=== PATIENT | female | born 1955 | race Caucasian/White ===

== ENCOUNTER → 2020-12-11 09:53 | Outpatient (CLI) | payer MEDICARE, OTHER, SELFPAY ==
--- NOTE | 2020-12-11 09:56 | DI.MG.S_ITS ---
BILATERAL DIGITAL SCREENING MAMMOGRAM 3D/2D WITH CAD: 12/11/2020 CLINICAL: Routine screening. Family history of breast cancer. Comparison is made to exams dated: 01/07/2019 mammogram, 11/17/2017 mammogram, and 04/27/2017 mammogram - [facility]. The tissue of both breasts is heterogeneously dense. This may lower the sensitivity of mammography. Current study was also evaluated with a Computer Aided Detection (CAD) system. No significant masses, calcifications, or other findings are seen in either breast. There has been no significant interval change. IMPRESSION: NEGATIVE There is no mammographic evidence of malignancy. A 1 year screening mammogram is recommended. This exam was interpreted at Station ID: [id number]. NOTE: For mammograms, a report in lay terms will be sent to the patient. Approximately 15% of breast malignancies will not be visualized mammographically. In the management of a palpable breast mass, a negative mammogram must not discourage biopsy of a clinically suspicious lesion. Electronically Signed By: Shreyas pop/kunal:12/11/2020 10:18:12 letter sent: Normal Exam ACR BI-RADS Category 1: Negative [id number]
== END ==
PROVIDERS: Family Provider Orthopaedic Surgery; PCP Internal Medicine; Referring Provider Internal Medicine; Visit Provider Internal Medicine
DX: Z12.31 Encounter for screening mammogram for malignant neoplasm of breast (principal); M81.0 Age-related osteoporosis without current pathological fracture; Z80.3 Family history of malignant neoplasm of breast; Z78.0 Asymptomatic menopausal state; Z90.722 Acquired absence of ovaries, bilateral
CPT/HCPCS: 77063; 77067; 77080

== ENCOUNTER → 2022-04-16 13:39 | Outpatient (CLI) | payer MEDICARE, OTHER, SELFPAY ==
--- NOTE | 2022-04-16 13:41 | DI.RAD.S_ITS ---
PROCEDURE: XR LUMBAR SPINE MIN 4V INDICATIONS: BACK PAIN TECHNIQUE: 5 views of the lumbar spine were acquired, including bilateral oblique views. COMPARISON: [facility], CR, XR LUMBAR SPINE 2 OR 3 VIEWS, 01/08/2018, 10:29. FINDINGS: Bones: 5 nonrib-bearing vertebrae are present. There is roughly 5 mm of anterolisthesis of L4 on L5. Multilevel disc space narrowing and endplate osteophyte formation. Facet hypertrophy throughout the lumbar spine. No vertebral body compression fractures. No suspicious bony lesions. The pars interarticularis are not well seen bilaterally secondary to obliquity and body habitus. Soft tissues: Overlying bowel gas pattern is normal. No suspicious soft tissue calcifications. IMPRESSION: 1. Multilevel degenerative disc and facet disease. 2. No acute fracture. No osseous lesion. If symptoms and/or clinical suspicion for pathology persist, further assessment with repeat, or advanced imaging (e.g., CT, MRI, or bone scan) may be helpful for further assessment. Dictated by: Rajiv Singh M.D. on 04/16/2022 at 15:48 Transcribed by: KESHIA on 04/16/2022 at 15:49 Approved by: Rajiv Singh M.D. on 04/16/2022 at 16:44
== END ==
PROVIDERS: Family Provider Orthopaedic Surgery; PCP Internal Medicine; Referring Provider Physical Medicine & Rehabilitation; Visit Provider Physical Medicine & Rehabilitation
DX: M54.9 Dorsalgia, unspecified (principal); M51.36 Other intervertebral disc degeneration, lumbar region; M47.816 Spondylosis without myelopathy or radiculopathy, lumbar region; M54.16 Radiculopathy, lumbar region; M48.061 Spinal stenosis, lumbar region without neurogenic claudication
CPT/HCPCS: 72110; 99214

== ENCOUNTER → 2022-04-25 14:55 | Outpatient (CLI) | payer MEDICARE, OTHER, SELFPAY ==
--- NOTE | 2022-04-25 14:57 | DI.MRI.S_ITS ---
PROCEDURE: MR LUMBAR SPINE WO CON INDICATIONS: Chronic progressive LBP TECHNIQUE: Noncontrast sagittal T1 spin echo and T2 fast echo, sagittal STIR, and T2 fast spin echo through the lumbar spine. In cases with scoliosis, additional coronal T2 fast spin echo may be performed. COMPARISON: [facility], , L-SPINE WITHOUT CONTRAST, 12/07/2017, 17:05. FINDINGS: Image quality: Excellent. Alignment and Curvature: There is normal bony alignment. Bone Marrow: Marrow is of normal overall signal. No acute vertebral body compression fractures. Spinal Cord: Conus medullaris terminates at the L1 level. Visualized cord demonstrates normal signal and size. Paraspinous Soft Tissues: No paravertebral masses. T12-L1: Normal appearance. L1-L2: Disc height is maintained. Circumferential disc bulge without central or foraminal stenosis. L2-L3: Disc space narrowing with circumferential disc bulge and hypertrophic facet joints results in mild central stenosis severe right and mild left foraminal stenosis L3-L4: Disc space narrowing with circumferential disc bulge and hypertrophic facet joints results in moderate central stenosis. Mild bilateral foraminal stenosis L4-L5: Disc space narrowing with circumferential disc bulge and hypertrophic facet joints results in severe central stenosis. There is possibility 4-5 mm left synovial cyst noted particularly on the lateral sequence image 4/10. Moderate left and mild right foraminal stenosis L5-S1: Disc space narrowing with circumferential disc bulge and hypertrophic facet joints results in no central stenosis mild left and no right foraminal stenosis IMPRESSION: Multilevel degenerative disc disease and arthropathy results in varying degrees of central and foraminal stenosis including severe central stenosis at L4-5 associated with possible left facet synovial cyst Approved by: Enoc Alva M.D. on 04/25/2022 at 17:21
== END ==
PROVIDERS: Family Provider Orthopaedic Surgery; PCP Student in an Organized Health Care Education/Training Program; Referring Provider Physical Medicine & Rehabilitation; Visit Provider Physical Medicine & Rehabilitation
DX: M51.16 Intervertebral disc disorders with radiculopathy, lumbar region (principal)
CPT/HCPCS: 72148

== ENCOUNTER 2022-05-27 13:46 | Outpatient (CLI) | payer MEDICARE, OTHER, SELFPAY ==
[2022-05-27] VITALS (8 sets, daily range): BP systolic 135–178; BP diastolic 60–84; PULSE 58–71; RESP 12–22; TEMP 36.3; O2SAT 96–99
--- NOTE | 2022-05-27 13:47 | DI.RAD.S_ITS ---
PROCEDURE: PAIN L/S FACET INJ/BLK 1ST BEENA COMPARISON: None. INDICATIONS: SPONDYLOSIS FINDINGS: Access needles identified in the bilateral L3-L4 and L4-L5 facets. Injection of small amount of contrast material demonstrates positioning of the needle tips in the facet joints and extra thecal location. IMPRESSION: Access needles localized to bilateral L3-L4 and L4-L5 facets for facet joint injection. Dictated by: Rosy Canada MD, PhD on 05/27/2022 at 15:04 Approved by: Rosy Canada MD, PhD on 05/27/2022 at 15:05
[2022-05-27] MEDS: MIDAZOLAM 2 MG/2 ML VIAL IV (14:24)
[2022-05-27] MEDS: BETAMETHASONE 30 MG/5 ML MDV 12 MG INJ (14:28)
[2022-05-27] MEDS: BUPIVACAINE 0.5% (PF) VIAL 5 ML INJ (14:28)
[2022-05-27] MEDS: IOPAMIDOL 15 ML VIAL 3 ML INJ (14:28)
[2022-05-27] MEDS: LIDOCAINE 1% 20 ML INJ (14:29)
--- NOTE | 2022-05-27 14:41 | P.PCN_ITS ---
Date/Time/Diagnoses Date of procedure: 05/27/22 Time of procedure: 14:41 Pre-procedure diagnosis: 1. FACET ARTHROPATHY 2. AXIAL LBP 3. MULTILEVEL DDD Post-procedure diagnosis: same Procedure Notes Procedure: 1. FLUORSCOPICALLY GUIDED CONTRAST CONTROLLED FACET JOINT INJECTIONS BILATERAL L3/4, L4/5 Indications: Vibha is referred by Dr. Reyna for treatment of Axial LBP Physician: Ameya Freedman Total Fluoroscopy time (seconds): 13 Total sedation minutes: 11 Complications: none Procedure in detail & Post-procedure care: FINDINGS Multilevel Facet Arthropathy with Clinically significant axial LBP DESCRIPTION OF PROCEDURE Fluoroscopically guided, contrast-controlled bilateral L3/4, L4/5 facet joint injections. Following review of allergy and review of potential side effects and complications, including, but not necessarily limited to, infection, allergic reaction, local tissue breakdown, stroke, temporary or permanent nerve injury, paralysis, and possible , the patient indicated that the patient understood and agreed to proceed. An informed consent document was signed by the patient, witnessed by a nurse, and placed in the patient's chart. Additionally, other treatment options including medications, modalities, and physical therapy were reviewed with the patient. After review of previous anaesthesic history and IV conscious sedation the patient was deemed safe to proceed with today's procedure with IV conscious sedation as ASA class II designation. Safety time-out was performed to confirm patient ID, procedure to be performed and site of procedure. IV sedation was accomplished with a combination of 2mg of Versed was administered by the RN after DO order, titrated to patient comfort during the course of the procedure while the patient remained responsive to all verbal commands. In the prone position, following sterile prep and drape of the lumbar region, the posterior aspect of the L3/4, L4/5 facet joints were identified fluoroscopically. The skin was anesthetized via a 25-gauge 1.5-inch needle with 1% lidocaine solution into the corresponding facet joints. At this point, a 22- gauge 3.5-inch spinal needle was atraumatically introduced and advanced under fluoroscopic guidance into the corresponding facet joints. Following negative aspiration, injections of approximately 0.2cc of Isovue 200 confirmed interarticular placement without vascular uptake. The identical procedure was then performed at the L3/4, L4/5 facet joints on the left. Radiological data, including multiple fluoroscopic views of the lumbosacral spine, reveal a spinal needle at the L3/4, L4/5 facet joints bilaterally. Subsequent views show flow of contrast material both superiorly and inferiorly within the joint space without vascular or intrathecal uptake. At this point, a total of 0.5cc including a mixture of 0.25cc Marcaine and 0.25cc betamethasone was injected without complication into each of the corresponding facet joints. The patient tolerated the procedure well without signs or symptoms of complications prior to transfer to the recovery area continued monitoring without incident. The patient was then transferred to the recovery area where they were observed for an appropriate period of time after the injection. The patient reported a VAS score of 7 prior to the procedure and a post-procedure VAS of 0. POST OP INSTRUCTIONS The patient was provided a Pain Log to continue to record their response to the target-specific procedure prior to follow-up visit with their referring physician. Additionally, specific post-injection care instructions and a contact number to our office were provided if concerns arise regarding possible complications associated with the procedure are suspected.
== END 2022-05-27 14:57 | disposition home or self-care (01) ==
LOC: RAD 13:47
PROVIDERS: Family Provider Orthopaedic Surgery; PCP Student in an Organized Health Care Education/Training Program; Referring Provider Physical Medicine & Rehabilitation; Visit Provider Physical Medicine & Rehabilitation
DX: M47.816 Spondylosis without myelopathy or radiculopathy, lumbar region (principal); M51.36 Other intervertebral disc degeneration, lumbar region
CPT/HCPCS: 64493; 64494; 99152; J0702; J2250

== ENCOUNTER 2022-12-11 10:35 | Outpatient (CLI) | payer MEDICARE, OTHER, SELFPAY ==
[2022-12-11] VITALS (9 sets, daily range): BP systolic 140–197; BP diastolic 72–87; PULSE 58–69; RESP 15–20; TEMP 36.1; O2SAT 95–100
--- NOTE | 2022-12-11 10:38 | DI.RAD.S_ITS ---
PROCEDURE: PAIN L/S FACET INJ/BLK 1ST BEENA COMPARISON: [facility], , PAIN L/S FACET INJ/BLK 1ST BEENA, 05/27/2022, 14:28. INDICATIONS: SPONDYLOSIS FINDINGS: Fluoroscopic spot filming was performed to verify placement of spinal needles on both sides at the L4, L5, and S1 levels, as labeled on the films. Appropriate location of the needle tips was confirmed by injection of iodinated contrast. IMPRESSION: Intraprocedural examination demonstrating appropriate positions of the needles. Dictated by: Babatunde Ingram M.D. on 12/11/2022 at 13:49 Approved by: Babatunde Ingram M.D. on 12/11/2022 at 13:49
[2022-12-11] MEDS: MIDAZOLAM 2 MG/2 ML VIAL IV (11:53)
[2022-12-11] MEDS: BUPIVACAINE 0.5% (PF) 10 ML VIAL 2 ML INJ (11:57)
[2022-12-11] MEDS: LIDOCAINE 1% 20 ML INJ (11:57)
[2022-12-11] MEDS: IOPAMIDOL 15 ML VIAL 3 ML INJ (11:58)
--- NOTE | 2022-12-11 12:15 | PM.PROC.IR.1 ---
Date/Time/Diagnoses Date of procedure: 12/11/22 Time of procedure: 12:15 Pre-procedure diagnosis: FACET ARTHROPATHY Post-procedure diagnosis: same Procedure Notes Procedure: 1. BILATERAL L3, L4 AND L5 DIAGNOSTIC MB BLOCKS Indications: Vibha is referred by Dr. Reyna for treatment of Bilateral Axial LBP. Physician: Ameya Freedman Total Fluoroscopy time (seconds): 14 Total sedation minutes: 15 Complications: none Procedure in detail & Post-procedure care: DESCRIPTION OF PROCEDURE Fluoroscopically guided, contrast-controlled bilateral L3, L4 AND L5 medial branch blocks with 0.5cc of 0.5% Marcaine. Following review of allergy and review of potential side effects and complications, including, but not necessarily limited to, infection, allergic reaction, local tissue breakdown, nerve injury, paralysis, stroke and possible , the patient indicated that the patient understood and agreed to proceed. An informed consent document was signed by the patient, witnessed by a nurse, and placed in the patient's chart. After review of previous anaesthesic history and IV conscious sedation the patient was deemed safe to proceed with today's procedure with IV conscious sedation as ASA class II designation. Safety time-out was performed to confirm patient ID, procedure to be performed and site of procedure. IV sedation was accomplished with a combination of 2mg of Versed was administered by the RN after DO order, titrated to patient comfort during the course of the procedure while the patient remained responsive to all verbal commands In the prone position, following sterile prep and drape of the lumbar region, the right L3, L4 AND L5 anatomical location of the medial branch of the dorsal ramus was identified fluoroscopically. Subsequently an anesthetic skin wheal using 1% lidocaine solution was initiated at each of the anatomical spots. Subsequently then a 22-gauge 3.5-inch spinal needle was atraumatically introduced and advanced under fluoroscopic guidance at each of the corresponding sites at the right L3, L4 and L5 MB. After negative aspiration, 0.2cc of Isovue 200 was injected, confirming placement without vascular or intrathecal uptake. Subsequently then 0.5cc of 0.5% Marcaine solution was injected at each of the corresponding sites at the right L3, L4 and L5 medial branch locations. The identical procedure was replicated on the left. The patient tolerated the procedure well without signs or symptoms of complications. The patient tolerated the procedure well without signs or symptoms of complications prior to transfer to the recovery area continued monitoring without incident. Post-procedure, the patient was monitored initiating provocative activities to measure the amount of relief from block of the facetogenic pain. The patient reported a VAS of 7 prior to the procedure and a post-procedure VAS of 1. It has been a pleasure to assist in the diagnostic and therapeutic care of your patient. POST OP INSTRUCTIONS The patient was provided with a Pain Log to complete over the next several hours and subsequent days prior to the patient's follow up with the ordering physician. If the patient has special agent group insurance relief to the solution applied, then they may be a candidate for medial branch rhizotomy. The patient is aware, was provided, once again, with a Pain Log and will follow up with the referring physician for review and clinical correlation
== END 2022-12-11 12:27 | disposition home or self-care (01) ==
LOC: RAD 10:36
PROVIDERS: Family Provider Orthopaedic Surgery; PCP Student in an Organized Health Care Education/Training Program; Referring Provider Physical Medicine & Rehabilitation; Visit Provider Physical Medicine & Rehabilitation
DX: M47.816 Spondylosis without myelopathy or radiculopathy, lumbar region (principal)
CPT/HCPCS: 64493; 64494; 99152; J2250

== ENCOUNTER 2023-04-07 10:17 | Outpatient (CLI) | payer MEDICARE, OTHER, SELFPAY ==
[2023-04-07] VITALS (10 sets, daily range): BP systolic 128–188; BP diastolic 75–105; PULSE 59–71; RESP 15–22; TEMP 36.8; O2SAT 95–98
--- NOTE | 2023-04-07 10:18 | DI.RAD.S_ITS ---
PROCEDURE: PAIN L/S FACET INJ/BLK 1ST BEENA COMPARISON: [facility], , PAIN L/S FACET INJ/BLK 1ST BEENA, 12/11/2022, 11:57. INDICATIONS: FACET ARTHROPATHY FINDINGS: Fluoroscopic spot filming was performed to verify placement of spinal needles on both sides at the L3, L4, and L5 levels, as labeled on the films. Appropriate location of the needle tips was confirmed by injection of iodinated contrast. IMPRESSION: Intraprocedural examination demonstrating appropriate positions of the needles. Dictated by: Babatunde Ingram M.D. on 04/07/2023 at 19:54 Approved by: Babatunde Ingram M.D. on 04/07/2023 at 19:54
[2023-04-07] MEDS: MIDAZOLAM 2 MG/2 ML VIAL IV (11:12)
[2023-04-07] MEDS: IOPAMIDOL 15 ML VIAL 3 ML INJ (11:18)
[2023-04-07] MEDS: LIDOCAINE 2% INJ MDV 20ML 5 ML INJ (11:19)
[2023-04-07] MEDS: LIDOCAINE 1% 20 ML 5 ML INJ (11:19)
--- NOTE | 2023-04-07 11:37 | P.PCN_ITS ---
Date/Time/Diagnoses Date of procedure: 04/07/23 Time of procedure: 11:37 Pre-procedure diagnosis: 1. FACET ARTHROPATHY Post-procedure diagnosis: same Procedure Notes Procedure: 1. BILATERAL L3, L4 AND L5 DIAGNOSTIC MB BLOCKS Indications: Vibha is referred by Dr. Reyna for treatment of Bilateral Axial LBP. Physician: Ameya Freedman Total Fluoroscopy time (seconds): 18 Total sedation minutes: 20 Complications: none Procedure in detail & Post-procedure care: DESCRIPTION OF PROCEDURE Fluoroscopically guided, contrast-controlled bilateral L3, L4 AND L5 medial branch blocks with 0.5cc of 2% Lidocaine. Following review of allergy and review of potential side effects and complications, including, but not necessarily limited to, infection, allergic reaction, local tissue breakdown, nerve injury, paralysis, stroke and possible , the patient indicated that the patient understood and agreed to proceed. An informed consent document was signed by the patient, witnessed by a nurse, and placed in the patient's chart. After review of previous anaesthesic history and IV conscious sedation the patient was deemed safe to proceed with today's procedure with IV conscious sedation as ASA class II designation. Safety time-out was performed to confirm patient ID, procedure to be performed and site of procedure. IV sedation was accomplished with a combination of 2mg of Versed was administered by the RN after DO order, titrated to patient comfort during the course of the procedure while the patient remained responsive to all verbal commands In the prone position, following sterile prep and drape of the lumbar region, the right L3, L4 AND L5 anatomical location of the medial branch of the dorsal ramus was identified fluoroscopically. Subsequently an anesthetic skin wheal using 1% lidocaine solution was initiated at each of the anatomical spots. Subsequently then a 22-gauge 3.5-inch spinal needle was atraumatically introduced and advanced under fluoroscopic guidance at each of the corresponding sites at the right L3, L4 and L5 MB. After negative aspiration, 0.2cc of Isovue 200 was injected, confirming placement without vascular or intrathecal uptake. Subsequently then 0.5cc of 2% Lidocaine solution was injected at each of the corresponding sites at the right L3, L4 and L5 medial branch locations. The identical procedure was replicated on the left. The patient tolerated the proc edure well without signs or symptoms of complications. The patient tolerated the procedure well without signs or symptoms of complications prior to transfer to the recovery area continued monitoring without incident. Post-procedure, the patient was monitored initiating provocative activities to measure the amount of relief from block of the facetogenic pain. The patient reported a VAS of 7 prior to the procedure and a post-procedure VAS of 1. It has been a pleasure to assist in the diagnostic and therapeutic care of your patient. POST OP INSTRUCTIONS The patient was provided with a Pain Log to complete over the next several hours and subsequent days prior to the patient's follow up with the ordering physician. If the patient has spring upholsterer relief to the solution applied, then they may be a candidate for medial branch rhizotomy. The patient is aware, was provided, once again, with a Pain Log and will follow up with the referring physician for review and clinical correlation
== END 2023-04-07 11:45 | disposition home or self-care (01) ==
LOC: RAD 10:17
PROVIDERS: Family Provider Orthopaedic Surgery; PCP Student in an Organized Health Care Education/Training Program; Referring Provider Physical Medicine & Rehabilitation; Visit Provider Physical Medicine & Rehabilitation
DX: M47.816 Spondylosis without myelopathy or radiculopathy, lumbar region (principal)
CPT/HCPCS: 64493; 64494; 99152; J2250

== ENCOUNTER 2023-05-12 10:33 | Outpatient (CLI) | payer MEDICARE, OTHER, SELFPAY ==
[2023-05-12] VITALS (12 sets, daily range): BP systolic 143–194; BP diastolic 68–85; PULSE 57–66; RESP 11–20; TEMP 36.6; O2SAT 96–99
[2023-05-12] MEDS: fentaNYL 100 MCG/2 ML INJ 50 MCG IV ×2 (11:34→11:56)
[2023-05-12] MEDS: MIDAZOLAM 2 MG/2 ML VIAL 1 MG IV (11:34)
[2023-05-12] MEDS: BUPIVACAINE 0.5% (PF) 10 ML VIAL 5 ML INJ (11:40)
[2023-05-12] MEDS: LIDOCAINE 1% 20 ML 5 ML INJ (11:41)
[2023-05-12] MEDS: MIDAZOLAM 5 MG/ML VIAL 1 MG IV (11:56)
--- NOTE | 2023-05-12 12:17 | P.PCN_ITS ---
Date/Time/Diagnoses Date of procedure: 05/12/23 Time of procedure: 12:17 Pre-procedure diagnosis: 1. RECALCITRANT FACET ARTHROPATHY Post-procedure diagnosis: same Procedure Notes Procedure: 1. BILATERAL L3, L4 AND L5 MEDIAL BRANCH RADIOFREQUENCY NEUROTOMY Indications: Vibha is referred by Dr. Reyna for treatment of facet arthropathy. Physician: Ameya Freedman Total Fluoroscopy time (seconds): 22 Total sedation minutes: 36 Complications: none Procedure in detail & Post-procedure care: DESCRIPTION OF PROCEDURE Bilateral L3, L4 and L5 medial branch radiofrequency neurotomy The patient is well known to this clinic having undergone previous facet injections with good but temporary relief. The patient has experienced appropriate, concordant relief with previous facet and median branch blocks but the patient's pain has been recalcitrant to further conservative measures. Therefore, based upon the patient's relief and persistent symptoms, the patient is considered an appropriate candidate for facet rhizotomy. All of the patient's questions regarding the risks versus benefits of the procedure, including, but not limited to, bleeding, infection, temporary as well as lasting nerve injury, paralysis, stroke, and , as well treatment alternatives were answered to satisfaction. After obtaining informed consent, denial of pertinent drug allergies, as well as being made aware of the potential risks of bleeding, infection, spinal cord trauma, paralysis, temporary and permanent nerve damage, seizure, stroke, and possible , the patient was brought to the fluoroscopy suite and positioned prone on the fluoroscopy table. The lumbar region was prepped with Betadine and covered with a fenestrated drape in the usual sterile fashion. Appropriate monitors applied including pulse oxime ter, pulse, and blood pressure for regular monitoring throughout the procedure. After review of previous anaesthesic history and IV conscious sedation the patient was deemed safe to proceed with today's procedure with IV conscious sedation as ASA class II designation. Safety time-out was performed to confirm patient ID, procedure to be performed and site of procedure. IV sedation was accomplished with a combination of 2mg of Versed and 100mcg of Fentanyl administered by the RN after DO order, titrated to patient comfort during the course of the procedure while the patient remained responsive to all verbal commands. After local infiltration using 1% lidocaine, under fluoroscopic guidance, a 10- cm RF insulated needle with a 10-mm active tip was positioned parallel to the junction of the right the superior articulating process where the L5 medial branch resides. Needle placement was confirmed with motor stimulation of .5v on the right which produced local stimulation without radicular component. The stimulation was then increased to 2v with, once again, only local multifidus stimulation without radicular component. The needle was then removed and the identical procedure was performed along the length of the right L4 medial branch with motor stimulation at .7v on the right. The identical procedure was once again performed along the length of the right L3 and medial branch with motor stimulation of .5v on the right. The medial branches were then anesthetised with 0.5% marcaine. This was then followed by two discreet lesions performed at 80 degrees Celsius for 90 seconds each. The identical procedures were repeated on the left. The patient tolerated the procedure well without signs or symptoms of complications prior to transfer to the recovery area continued monitoring without incident. The patient was then transferred to the recovery area where they were observed for an appropriate period of time after the injection. The patient reported a VAS score of 9 prior to the procedure and a post-procedure VAS of 0. POST OP INSTRUCTIONS The patient was provided a Pain Log to continue to record the patient's response to the target-specific procedure prior to the patient's follow-up visit with the referring physician. Additionally, specific post-injection care instructions and a contact number to our office were provided if concerns arise regarding possible complications associated with the procedure are suspected.
--- NOTE | 2023-05-12 12:28 | DI.RAD.S_ITS ---
PROCEDURE: PAIN L/S MED/LAT N RFA BILAT INDICATIONS: SPONDYLOSIS COMPARISON: None. FINDINGS: Fluoroscopic spot filming was performed to verify placement of spinal needles at the bilateral L3, L4 and L5 pedicles level(s), as labeled on the films. Appropriate location(s) of the needle tip(s) was confirmed by injection of iodinated contrast. IMPRESSION: Access needles at the bilateral L3, L4 and L5 pedicles for bilateral L3, L4 and L5 medial branch block. Dictated by: Rosy Canada MD, PhD on 05/12/2023 at 13:09 Approved by: Rosy Canada MD, PhD on 05/12/2023 at 13:10
== END 2023-05-12 12:33 | disposition home or self-care (01) ==
LOC: RAD 10:35
PROVIDERS: Family Provider Orthopaedic Surgery; PCP Student in an Organized Health Care Education/Training Program; Referring Provider Physical Medicine & Rehabilitation; Visit Provider Physical Medicine & Rehabilitation
DX: M47.816 Spondylosis without myelopathy or radiculopathy, lumbar region (principal)
CPT/HCPCS: 64635; 64636; 99152; 99153; J2250; J3010

== ENCOUNTER 2023-07-21 09:10 | Outpatient (CLI) | payer MEDICARE, OTHER, SELFPAY ==
[2023-07-21] VITALS (8 sets, daily range): BP systolic 143–178; BP diastolic 58–88; PULSE 57–62; RESP 11–20; TEMP 36.9; O2SAT 95–98
--- NOTE | 2023-07-21 09:45 | DI.RAD.S_ITS ---
PROCEDURE: PAIN L INTERLAMINAR/CAUDAL INJ INDICATIONS: SPINAL STENOSIS COMPARISON: None. FINDINGS: Fluoroscopic spot filming was performed to verify placement of spinal needles at the L4-5 level(s), as labeled on the films. Appropriate location(s) of the needle tip(s) was confirmed by injection of iodinated contrast. IMPRESSION: Fluoroscopic image demonstrates spinal needle at the L4-5 level. Please see procedure report for details. Dictated by: Álvaro Winston M.D. on 07/21/2023 at 13:16 Approved by: Álvaro Winston M.D. on 07/21/2023 at 13:16
[2023-07-21] MEDS: MIDAZOLAM 2 MG/2 ML VIAL IV (10:21)
[2023-07-21] MEDS: BUPIVACAINE 0.25% (PF) VIAL 2 ML INJ (10:27)
[2023-07-21] MEDS: BETAMETHASONE 30 MG/5 ML MDV 6 MG INJ (10:27)
[2023-07-21] MEDS: DEXAMETHASONE 10 MG/ML VIAL INJ (10:28)
[2023-07-21] MEDS: iopamidoL 15 ML VIAL 3 ML INJ (10:28)
--- NOTE | 2023-07-21 15:21 | P.PCN_ITS ---
Date/Time/Diagnoses Date of procedure: 07/21/23 Time of procedure: 10:00 Pre-procedure diagnosis: 1. HNP WITH RADICULAR FEATURES, 2. MULTILEVEL CENTRAL STENOSIS, Post-procedure diagnosis: same Procedure Notes Procedure: 1. FLUOROSCOPICALLY GUIDED CONTRAST CONTROLLED INTERLAMINAR EPIDURAL STEROID INJECTION -L4/5 Indications: Vibha is referred by Dr. Reyna for treatment of Bilateral Foraminal Stenosis R>L LE symptoms. Physician: Ameya Freedman Total Fluoroscopy time (seconds): 5 Total sedation minutes: 10 Complications: none Procedure in detail & Post-procedure care: FINDINGS Multilevel Central Spinal Stenosis with Nerve Root Compression DESCRIPTION OF PROCEDURE Fluoroscopically guided, contrast-controlled L4/5 translaminar epidural steroid injection. Following review of allergy and review of potential side effects and complications, including, but not necessarily limited to, infection, allergic reaction, local tissue breakdown, temporary as well as permanent nerve injury, paralysis, stroke and possible , the patient indicated that the patient understood and agreed to proceed. An informed consent document was signed by the patient, witnessed by a nurse, and placed in the patient's chart. Additionally, other treatment options including modalities, medications, and physical therapy were reviewed with the patient. After review of previous anaesthesic history and IV conscious sedation the patient was deemed safe to proceed with today?s procedure with IV conscious sedation as ASA class II designation. Safety time-out was performed to confirm patient ID, procedure to be performed and site of procedure. IV sedation was accomplished with a combination of 2mg of Versed was administered by the RN after DO order, titrated to patient comfort during the course of the procedure while the patient remained responsive to all verbal commands In the prone position, following sterile prep and drape of the lumbar region, the L4/5 translaminar space was identified fluoroscopically. The skin was anesthetized via a 25-gauge, 1.5inch needle with 1% lidocaine solution. At this point, a 22-gauge short bevel spinal needle was atraumatically introduced and a dvanced under fluoroscopic guidance into the region of the L4/5 translaminar space. Depth was confirmed on lateral view. Radiological data, including multiple fluoroscopic views of the lumbar spine, reveal a spinal needle at the L4/5 translaminar space. Lateral views then show placement of the needle in the epidural space. Subsequent views show contrast material flowing superiorly and inferiorly in the epidural space. No vascular or intrathecal uptake is observed. At this point, using loss of resistance technique with saline and air, the epidural space was entered. This was confirmed following negative aspiration with injection of approximately 1.5cc of Isovue 200, showing excellent epidural flow without vascular or intrathecal uptake. At this point, 1cc of 1% lidocaine solution combined with 2cc or 10mg of dexamethasone and 6mg betamethasone was injected without incident. The patient tolerated the procedure well without signs or symptoms of complications prior to transfer to the recovery area continued monitoring without incident. The patient was then transferred to the recovery area where they were observed for an appropriate period of time after the injection. The patient reported a VAS score of 6 prior to the procedure and a post- procedure VAS of 0. POST OP INSTRUCTIONS The patient was provided a Pain Log to continue to record their response to the target-specific procedure prior to follow-up visit with their referring physician. Additionally, specific post-injection care instructions and a contact number to our office were provided if concerns arise regarding possible complications associated with the procedure are suspected.
== END 2023-07-21 10:56 | disposition home or self-care (01) ==
PROVIDERS: Family Provider Orthopaedic Surgery; PCP Student in an Organized Health Care Education/Training Program; Referring Provider Physical Medicine & Rehabilitation; Visit Provider Physical Medicine & Rehabilitation
DX: M51.16 Intervertebral disc disorders with radiculopathy, lumbar region (principal); M48.061 Spinal stenosis, lumbar region without neurogenic claudication
CPT/HCPCS: 62323; 99152; J0702; J1100; J2250; J3490

== ENCOUNTER 2023-11-24 14:17 | Outpatient (CLI) | payer MEDICARE, OTHER, SELFPAY ==
[2023-11-24] VITALS (8 sets, daily range): BP systolic 147–190; BP diastolic 55–88; PULSE 63–78; RESP 12–18; TEMP 36.1; O2SAT 94–98
--- NOTE | 2023-11-24 15:00 | DI.RAD.S_ITS ---
PROCEDURE: PAIN L INTERLAMINAR/CAUDAL INJ INDICATIONS: STENOSIS COMPARISON: Located Within [facility], , PAIN L INTERLAMINAR/CAUDAL INJ, 07/21/2023, 11:25. FINDINGS: Fluoroscopic spot filming was performed to verify placement of spinal needles at the left L4-L5 level(s), as labeled on the films. Appropriate location(s) of the needle tip(s) was confirmed by injection of iodinated contrast. IMPRESSION: Intraoperative guidance provided. Dictated by: Garett Benavidez M.D. on 11/24/2023 at 22:09 Approved by: Garett Benavidez M.D. on 11/24/2023 at 22:11
[2023-11-24] MEDS: MIDAZOLAM 2 MG/2 ML VIAL IV (15:41)
[2023-11-24] MEDS: BETAMETHASONE 30 MG/5 ML MDV 6 MG INJ (15:44)
[2023-11-24] MEDS: DEXAMETHASONE 10 MG/ML VIAL INJ (15:44)
[2023-11-24] MEDS: iopamidoL 15 ML VIAL 3 ML INJ (15:44)
[2023-11-24] MEDS: BUPIVACAINE 0.25% (PF) VIAL 2 ML INJ (15:45)
--- NOTE | 2023-11-24 15:54 | P.PCN_ITS ---
Date/Time/Diagnoses Date of procedure: 11/24/23 Time of procedure: 15:54 Pre-procedure diagnosis: 1. HNP WITH RADICULAR FEATURES, 2. MULTILEVEL CENTRAL STENOSIS, Post-procedure diagnosis: same Procedure Notes Procedure: 1. FLUOROSCOPICALLY GUIDED CONTRAST CONTROLLED INTERLAMINAR EPIDURAL STEROID INJECTION -L4/5 Indications: Vibha is referred by Dr. Reyna for treatment of Bilateral Foraminal Stenosis R>L LE symptoms. Physician: Ameya Freedman Total Fluoroscopy time (seconds): 8 Total sedation minutes: 10 Complications: none Procedure in detail & Post-procedure care: FINDINGS Multilevel Central Spinal Stenosis with Nerve Root Compression DESCRIPTION OF PROCEDURE Fluoroscopically guided, contrast-controlled L4/5 translaminar epidural steroid injection. Following review of allergy and review of potential side effects and complications, including, but not necessarily limited to, infection, allergic reaction, local tissue breakdown, temporary as well as permanent nerve injury, paralysis, stroke and possible , the patient indicated that the patient understood and agreed to proceed. An informed consent document was signed by the patient, witnessed by a nurse, and placed in the patient's chart. Additionally, other treatment options including modalities, medications, and physical therapy were reviewed with the patient. After review of previous anaesthesic history and IV conscious sedation the patient was deemed safe to proceed with today?s procedure with IV conscious sedation as ASA class II designation. Safety time-out was performed to confirm patient ID, procedure to be performed and site of procedure. IV sedation was accomplished with a combination of 2mg of Versed was administered by the RN after DO order, titrated to patient comfort during the course of the procedure while the patient remained responsive to all verbal commands In the prone position, following sterile prep and drape of the lumbar region, the L4/5 translaminar space was identified fluoroscopically. The skin was anesthetized via a 25-gauge, 1.5inch needle with 1% lidocaine solution. At this point, a 22-gauge short bevel spinal needle was atraumatically introduced and a dvanced under fluoroscopic guidance into the region of the L4/5 translaminar space. Depth was confirmed on lateral view. Radiological data, including multiple fluoroscopic views of the lumbar spine, reveal a spinal needle at the L4/5 translaminar space. Lateral views then show placement of the needle in the epidural space. Subsequent views show contrast material flowing superiorly and inferiorly in the epidural space. No vascular or intrathecal uptake is observed. At this point, using loss of resistance technique with saline and air, the epidural space was entered. This was confirmed following negative aspiration with injection of approximately 1.5cc of Isovue 200, showing excellent epidural flow without vascular or intrathecal uptake. At this point, 1cc of 1% lidocaine solution combined with 2cc or 10mg of dexamethasone and 6mg betamethasone was injected without incident. The patient tolerated the procedure well without signs or symptoms of complications prior to transfer to the recovery area continued monitoring without incident. The patient was then transferred to the recovery area where they were observed for an appropriate period of time after the injection. The patient reported a VAS score of 6 prior to the procedure and a post- procedure VAS of 0. POST OP INSTRUCTIONS The patient was provided a Pain Log to continue to record their response to the target-specific procedure prior to follow-up visit with their referring physician. Additionally, specific post-injection care instructions and a contact number to our office were provided if concerns arise regarding possible complications associated with the procedure are suspected.
== END 2023-11-24 16:12 | disposition home or self-care (01) ==
PROVIDERS: PCP Student in an Organized Health Care Education/Training Program; Referring Provider Physical Medicine & Rehabilitation; Visit Provider Physical Medicine & Rehabilitation
DX: M51.16 Intervertebral disc disorders with radiculopathy, lumbar region (principal); M48.061 Spinal stenosis, lumbar region without neurogenic claudication
CPT/HCPCS: 62323; 99152; J0702; J1100; J2250; J3490

== ENCOUNTER 2024-02-18 07:59 | Outpatient (CLI) | payer MEDICARE, OTHER, SELFPAY ==
[2024-02-18] VITALS (8 sets, daily range): BP systolic 133–175; BP diastolic 65–77; PULSE 57–66; RESP 12–21; TEMP 36.6; O2SAT 93–100
--- NOTE | 2024-02-18 08:45 | DI.RAD.S_ITS ---
PROCEDURE: PAIN L/S TRANSFORAMINAL INJECT INDICATIONS: Right L4-5 transforaminal CHRISTIANO COMPARISON: None. FINDINGS: Fluoroscopic spot filming was performed to verify placement of spinal needles at the labeled right L4-5 level(s), as labeled on the films. Appropriate location(s) of the needle tip(s) was confirmed by injection of iodinated contrast. IMPRESSION: Contrast and needle placement overlying right L4-5. Dictated by: Lexii Gore M.D. on 02/18/2024 at 16:54 Approved by: Lexii Gore M.D. on 02/18/2024 at 16:54
[2024-02-18] MEDS: MIDAZOLAM 2 MG/2 ML VIAL IV (08:48)
[2024-02-18] MEDS: iopamidoL 15 ML VIAL 3 ML INJ (08:54)
[2024-02-18] MEDS: DEXAMETHASONE 10 MG/ML VIAL INJ (08:55)
[2024-02-18] MEDS: BETAMETHASONE 30 MG/5 ML MDV 6 MG INJ (08:55)
[2024-02-18] MEDS: BUPIVACAINE 0.25% (PF) VIAL 2 ML INJ (08:55)
--- NOTE | 2024-02-18 09:05 | P.PCN_ITS ---
Date/Time/Diagnoses Date of procedure: 02/18/24 Time of procedure: 09:05 Pre-procedure diagnosis: 1. FORAMINAL STENOSIS WITH LE SYMPTOMS Post-procedure diagnosis: same Procedure Notes Procedure: 1. FLUOROSCOPICALLY GUIDED CONTRAST CONTROLLED TRANSFORAMINAL EPIDURAL STEROID INJECTION - RIGHT L4/5 TFESI Indications: Vibha is referred by ALEXI Khalil for treatment of Foraminal Stenosis with Right LE Symptoms Physician: Ameya Freedman Total Fluoroscopy time (seconds): 8 Total sedation minutes: 13 Complications: none Procedure in detail & Post-procedure care: FINDINGS Foraminal Nerve Root Compression secondary to disc disease and facet hypertrophy DESCRIPTION OF PROCEDURE Following review of allergy and review of potential side effects and complications, including, but not necessarily limited to, infection, allergic reaction, local tissue breakdown, stroke, temporary or permanent nerve injury, paralysis, and possible , the patient indicated that the patient understood and agreed to proceed. An informed consent document was signed by the patient, witnessed by a nurse, and placed in the patient's chart. Additionally, other treatment options including medications, modalities, and physical therapy were reviewed with the patient. After review of previous anaesthesic history and IV conscious sedation the patient was deemed safe to proceed with today?s procedure with IV conscious sedation as ASA class II designation. Safety time-out was performed to confirm patient ID, procedure to be performed and site of procedure. IV sedation was accomplished with a combination of 2mg of Versed was administered by the RN after DO order, titrated to patient comfort during the course of the procedure while the patient remained responsive to all verbal commands In the prone position following sterile prep and drape of the lumbar region, the right L4/5 posterior neuroforamen was identified fluoroscopically. The skin was anesthetized via a 25-gauge 1.5-inch needle with 1% lidocaine solution. At this point, a 25-gauge 3.5-inch spinal needle was atraumatically introduced and advanced under fluoroscopic guidance through the posterior right L4/5 neuroforamen to approximately the anterior aspect of the canal. Depth was confirmed on lateral view. Following negative aspiration, injection of approximately 1.5cc of Isovue 200 under live fluoroscopy in the AP view co nfirmed excellent flow along the nerve root, into the epidural space without vascular or intrathecal uptake observed Radiological data, including multiple fluoroscopic views of the lumbosacral spin e, reveal a spinal needle at the right L4/5 posterior neuroforamen. Subsequent views show flow of contrast material flowing superiorly and inferiorly along the nerve root confirming epidural flow. Subsequently, a test dose of 1.5 cc of 1% lidocaine solution was administered and patient was observed for two minutes for signs or symptoms of complications, including abdominal pain, shortness of breath, bilateral upper or lower extremity weakness, nausea and vomiting, prior to steroid injection. At this point, a total of 2cc or 10mg of dexamethasone and 6mg of betamethasone was injected without incident. The procedure tolerated the procedure well without signs or symptoms of complications prior to transfer to the recovery area continued monitoring without incident. The patient was then transferred to the recovery area where they were observed for an appropriate time after the injection. The patient reported a VAS score of 7 prior to the procedure and a post- procedure VAS of 0. POST OP INSTRUCTIONS The patient was provided a Pain Log to continue to record their response to the target-specific procedure prior to follow-up visit with their referring physician. Additionally, specific post-injection care instructions and a contact number to our office were provided if concerns arise regarding possible complications associated with the procedure are suspected.
== END 2024-02-18 09:22 | disposition home or self-care (01) ==
LOC: RAD 08:00
PROVIDERS: PCP Nurse Practitioner Family; Referring Provider Physical Medicine & Rehabilitation; Visit Provider Physical Medicine & Rehabilitation
DX: M48.061 Spinal stenosis, lumbar region without neurogenic claudication (principal); M51.16 Intervertebral disc disorders with radiculopathy, lumbar region; M47.26 Other spondylosis with radiculopathy, lumbar region
CPT/HCPCS: 64483; 99152; J0702; J1100; J2250; J3490

== ENCOUNTER → 2024-05-25 12:37 | Outpatient (CLI) | payer MEDICARE, OTHER, SELFPAY ==
--- NOTE | 2024-05-25 12:41 | DI.RAD.S_ITS ---
PROCEDURE: XR LUMBAR SPINE MIN 4V INDICATIONS: BACK PAIN TECHNIQUE: 5 views of the lumbar spine acquired, including flexion and extension views. COMPARISON: [facility], , XR LUMBAR SPINE MIN 4V, 04/16/2022, 13:55. FINDINGS: Bones: 5 nonrib-bearing vertebrae are present. There is normal bony alignment. No vertebral body compression fractures. No suspicious bony lesions. Generalized decreased osseous mineralization noted. Disc space narrowing and hypertrophic facet joints noted particularly lower lumbar spine. The grade 1 anterior spondylolisthesis noted at L4-5. Both oblique images are unremarkable Soft tissues: Overlying bowel gas pattern is normal. No suspicious soft tissue calcifications. IMPRESSION: Degenerative disc disease and arthropathy particularly lower lumbar spine. Osteopenia Approved by: Enoc Alva M.D. on 05/25/2024 at 13:38
== END ==
PROVIDERS: Referring Provider Physical Medicine & Rehabilitation; Visit Provider Physical Medicine & Rehabilitation
DX: M47.26 Other spondylosis with radiculopathy, lumbar region (principal); M48.061 Spinal stenosis, lumbar region without neurogenic claudication; M51.16 Intervertebral disc disorders with radiculopathy, lumbar region; M85.88 Other specified disorders of bone density and structure, other site
CPT/HCPCS: 72110

== ENCOUNTER 2024-06-23 09:06 | Outpatient (CLI) | payer MEDICARE, OTHER, SELFPAY ==
[2024-06-23] VITALS (8 sets, daily range): BP systolic 134–170; BP diastolic 62–79; PULSE 60–70; RESP 16–20; TEMP 36.1; O2SAT 94–99
--- NOTE | 2024-06-23 09:09 | DI.RAD.S_ITS ---
PROCEDURE: PAIN L/S TRANSFORAMINAL INJECT INDICATIONS: Left L4/5 TFESI COMPARISON: [facility], , PAIN L/S TRANSFORAMINAL INJECT, 02/18/2024, 8:53. FINDINGS: Fluoroscopic spot filming was performed to verify placement of spinal needles at the left L4-5 level(s), as labeled on the films. Appropriate location(s) of the needle tip(s) was confirmed by injection of iodinated contrast. IMPRESSION: Intraoperative fluoroscopy for left L4-5 transforaminal CHRISTIANO. Dictated by: Lisette Christiansen M.D. on 06/23/2024 at 17:36 Approved by: Lisette Christiansen M.D. on 06/23/2024 at 17:37
[2024-06-23] MEDS: MIDAZOLAM 2 MG/2 ML VIAL IV (10:36)
[2024-06-23] MEDS: BETAMETHASONE 30 MG/5 ML MDV 12 MG INJ (10:42)
[2024-06-23] MEDS: iopamidoL 15 ML VIAL 3 ML INJ (10:43)
[2024-06-23] MEDS: BUPIVACAINE 0.25% (PF) VIAL 2 ML INJ (10:43)
[2024-06-23] MEDS: DEXAMETHASONE 10 MG/ML VIAL INJ (10:43)
--- NOTE | 2024-06-23 10:53 | P.PCN_ITS ---
Date/Time/Diagnoses Date of procedure: 06/23/24 Time of procedure: 10:53 Pre-procedure diagnosis: 1. FORAMINAL STENOSIS WITH LE SYMPTOMS Post-procedure diagnosis: same Procedure Notes Procedure: 1. FLUOROSCOPICALLY GUIDED CONTRAST CONTROLLED TRANSFORAMINAL EPIDURAL STEROID INJECTION - LEFT L4/5 Indications: Vibha is referred for treatment of Foraminal Stenosis with Left LE Symptoms Physician: Ameya Freedman Total Fluoroscopy time (seconds): 10 Total sedation minutes: 11 Complications: none Procedure in detail & Post-procedure care: FINDINGS Foraminal Nerve Root Compression secondary to disc disease and facet hypertrophy DESCRIPTION OF PROCEDURE Following review of allergy and review of potential side effects and complications, including, but not necessarily limited to, infection, allergic reaction, local tissue breakdown, stroke, temporary or permanent nerve injury, paralysis, and possible , the patient indicated that the patient understood and agreed to proceed. An informed consent document was signed by the patient, witnessed by a nurse, and placed in the patient's chart. Additionally, other treatment options including medications, modalities, and physical therapy were reviewed with the patient. After review of previous anaesthesic history and IV conscious sedation the patient was deemed safe to proceed with today?s procedure with IV conscious sedation as ASA class II designation. Safety time-out was performed to confirm patient ID, procedure to be performed and site of procedure. IV sedation was accomplished with a combination of 2mg of Versed administered by the RN after DO order, titrated to patient comfort during the course of the procedure while the patient remained responsive to all verbal commands In the prone position following sterile prep and drape of the lumbar region, the left L4/5 posterior neuroforamen was identified fluoroscopically. The skin was anesthetized via a 25-gauge 1.5-inch needle with 1% lidocaine solution. At this point, a 25-gauge 3.5-inch spinal needle was atraumatically introduced and advanced under fluoroscopic guidance through the posterior left L4/5 neuroforamen to approximately the anterior aspect of the canal. Depth was confirmed on lateral view. Following negative aspiration, injection of approximately 1.5 cc of Isovue 200 under live fluoroscopy in the AP view confirmed excellent flow along the nerve root, into the epidural space without vascular or intrathecal uptake observed Radiological data, including multiple fluoroscopic views of the lumbosacral spine, reveal a spinal needle at the left L4/5 posterior neuroforamen. Subsequent views show flow of contrast material flowing superiorly and inferiorly along the nerve root confirming epidural flow. Subsequently, a test dose of 1.5 cc of 1% lidocaine solution was administered and patient was observed for two minutes for signs or symptoms of complications, including abdominal pain, shortness of breath, bilateral upper or lower extremity weakness, nausea and vomiting, prior to steroid injection. At this point, a total of 3cc or 10mg of dexamethasone and 12mg of betamethasone was injected without incident. The procedure tolerated the procedure well without signs or symptoms of complications prior to transfer to the recovery area continued monitoring without incident. The patient was then transferred to the recovery area where they were observed for an appropriate time after the injection. The patient reported a VAS score of 7 prior to the procedure and a post- procedure VAS of 0. POST OP INSTRUCTIONS The patient was provided a Pain Log to continue to record their response to the target-specific procedure prior to follow-up visit with their referring physician. Additionally, specific post-injection care instructions and a contact number to our office were provided if concerns arise regarding possible complications associated with the procedure are suspected.
== END 2024-06-23 11:20 | disposition home or self-care (01) ==
PROVIDERS: Referring Provider Physical Medicine & Rehabilitation; Visit Provider Physical Medicine & Rehabilitation
DX: M51.16 Intervertebral disc disorders with radiculopathy, lumbar region (principal)
CPT/HCPCS: 64483; 99152; J0702; J1100; J2250; J3490

== ENCOUNTER → 2024-10-05 15:15 | Outpatient (CLI) | payer MEDICARE, OTHER, SELFPAY ==
--- NOTE | 2024-10-05 15:17 | DI.RAD.S_ITS ---
PROCEDURE: XR CERVICAL SPINE 4V OR 5V INDICATIONS: right upper extremity radiculopathy TECHNIQUE: 4 views of the cervical spine acquired. COMPARISON: None. FINDINGS: Seven cervical vertebrae are identified. The vertebral body heights are preserved. Straightening of the cervical lordosis. Intervertebral disc height loss at C5-C6, C6-C7, and C7-T1. Multilevel facet and uncinate arthropathy, most conspicuous at C4-C5 and C5-C6. Mild right foraminal narrowing at the C3-C4, C4-C5, and C5-C6 levels. No significant left foraminal narrowing. The C1 and C2 lateral masses are in symmetric alignment with the dens on the odontoid view. Mild bilateral common carotid vascular calcifications. No prevertebral soft tissue edema. IMPRESSION: Mild multilevel cervical osteoarthrosis with mild foraminal narrowing at the C3-C4, C4-C5, and C5-C6 levels. Dictated by: Monty Fontenot M.D. on 10/06/2024 at 13:38 Approved by: Monty Fontenot M.D. on 10/06/2024 at 13:40
== END ==
PROVIDERS: Referring Provider Physical Medicine & Rehabilitation; Visit Provider Physical Medicine & Rehabilitation
DX: M47.22 Other spondylosis with radiculopathy, cervical region (principal); M48.02 Spinal stenosis, cervical region; M47.896 Other spondylosis, lumbar region; M71.38 Other bursal cyst, other site; M48.061 Spinal stenosis, lumbar region without neurogenic claudication
CPT/HCPCS: 72050; 99214

== ENCOUNTER → 2024-10-12 11:55 | Outpatient (CLI) | payer MEDICARE, OTHER, SELFPAY ==
--- NOTE | 2024-10-12 11:58 | DI.CT.S_ITS ---
PROCEDURE: CT HEAD/BRAIN WO CON INDICATIONS: Lightheadedness, headache, visual changes TECHNIQUE: Noncontrast 4.5 mm thick angled axial sections acquired from the foramen magnum to the vertex, with coronal and sagittal reformats. For radiation dose reduction, the following was used: automated exposure control, adjustment of mA and/or kV according to patient size. COMPARISON: None. FINDINGS: Image quality: Diagnostic. CSF spaces: Basal cisterns are patent. No extra-axial fluid collections. The ventricles are symmetric in size and shape. Brain: No intracranial bleeds or masses. There is mild cerebral volume loss for age, with resultant ventricular and sulcal prominence. There are minimal periventricular and deep white matter chronic small vessel ischemic changes. There is intracranial internal carotid artery atherosclerosis. Skull and face: Calvarium and visualized facial bones appear intact, without suspicious lesions. Sinuses: Visualized sinuses and mastoids are clear. IMPRESSION: No acute intracranial pathology. Dictated by: Rosy Canada MD, PhD on 10/12/2024 at 12:52 Approved by: Rosy Canada MD, PhD on 10/12/2024 at 12:54
== END ==
PROVIDERS: Referring Provider Internal Medicine Cardiovascular Disease; Visit Provider Internal Medicine Cardiovascular Disease
DX: I65.29 Occlusion and stenosis of unspecified carotid artery (principal); R42 Dizziness and giddiness; R51.9 Headache, unspecified; R26.89 Other abnormalities of gait and mobility
CPT/HCPCS: 70450

== ENCOUNTER 2024-10-18 07:23 | Outpatient (CLI) | payer MEDICARE, OTHER, SELFPAY ==
[2024-10-18] VITALS (13 sets, daily range): BP systolic 119–180; BP diastolic 59–81; PULSE 62–73; RESP 15–19; TEMP 36.3; O2SAT 95–99
[2024-10-18] MEDS: MIDAZOLAM 2 MG/2 ML VIAL IV (08:15)
[2024-10-18] MEDS: BUPIVACAINE 0.5% (PF) 10 ML VIAL 5 ML INJ (08:21)
[2024-10-18] MEDS: LIDOCAINE 1% 20 ML 5 ML INJ (08:21)
[2024-10-18] MEDS: MIDAZOLAM 2 MG/2 ML VIAL 1 MG IV ×2 (08:30→08:40)
--- NOTE | 2024-10-18 08:59 | P.PCN_ITS ---
Date/Time/Diagnoses Date of procedure: 10/18/24 Time of procedure: 09:00 Pre-procedure diagnosis: 1. RECALCITRANT FACET ARTHROPATHY Post-procedure diagnosis: same Procedure Notes Procedure: 1. BILATERAL L3, L4 AND L5 MEDIAL BRANCH RADIOFREQUENCY NEUROTOMY Indications: Vibha is referred for treatment of facet arthropathy. Physician: Ameya Freedman Total Fluoroscopy time (seconds): 15 Total sedation minutes: 36 Complications: none Procedure in detail & Post-procedure care: DESCRIPTION OF PROCEDURE Bilateral L3, L4 and L5 medial branch radiofrequency neurotomy The patient is well known to this clinic having undergone previous facet injections with good but temporary relief. The patient has experienced appropriate, concordant relief with previous facet and median branch blocks but the patient's pain has been recalcitrant to further conservative measures. Therefore, based upon the patient's relief and persistent symptoms, the patient is considered an appropriate candidate for facet rhizotomy. All of the patient's questions regarding the risks versus benefits of the procedure, including, but not limited to, bleeding, infection, temporary as well as lasting nerve injury, paralysis, stroke, and , as well treatment alternatives were answered to satisfaction. After obtaining informed consent, denial of pertinent drug allergies, as well as being made aware of the potential risks of bleeding, infection, spinal cord trauma, paralysis, temporary and permanent nerve damage, seizure, stroke, and possible , the patient was brought to the fluoroscopy suite and positioned prone on the fluoroscopy table. After review of previous anaesthesic history and IV conscious sedation the patient was deemed safe to proceed with today's procedure with IV conscious sedation as ASA class II designation. Safety time-out was performed to confirm patient ID, procedure to be performed and site of procedure. IV sedation was accomplished with a combination of 4mg of Versed administered by the RN after DO order, titrated to patient comfort during the course of the procedure while the patient remained responsive to all verbal commands. The lumbar region was prepped in usual sterile fashion and covered with a fenestrated drape in the usual sterile fashion. Appropriate monitors applied including pulse oximeter, pulse, and blood pressure for regular monitoring throughout the procedure. After local infiltration using 1% lidocaine, under fluoroscopic guidance, a 10- cm RF insulated needle with a 10-mm active tip was positioned parallel to the junction of the right the superior articulating process where the L5 medial branch resides. Needle placement was confirmed with motor stimulation of .5v on the right which produced local stimulation without radicular component. The stimulation was then increased to 2v with, once again, only local multifidus stimulation without radicular component. The needle was then removed and the identical procedure was performed along the length of the right L4 medial branch with motor stimulation at .7v on the right. The identical procedure was once again performed along the length of the right L3 and medial branch with motor stimulation of .5v on the right. The medial branches were then anesthetised with 0.5% marcaine. This was then followed by two discreet lesions performed at 80 degrees Celsius for 90 seconds each. The identical procedures were repeated on the left. The patient tolerated the procedure well without signs or symptoms of complications prior to transfer to the recovery area continued monitoring without incident. The patient was then transferred to the recovery area where they were observed for an appropriate period of time after the injection. The patient reported a VAS score of 8 prior to the procedure and a post-procedure VAS of 1. POST OP INSTRUCTIONS The patient was provided a Pain Log to continue to record the patient's response to the target-specific procedure prior to the patient's follow-up visit with the referring physician. Additionally, specific post-injection care instructions and a contact number to our office were provided if concerns arise regarding possible complications associated with the procedure are suspected.
== END 2024-10-18 09:15 | disposition home or self-care (01) ==
PROVIDERS: Referring Provider Physical Medicine & Rehabilitation; Visit Provider Physical Medicine & Rehabilitation
DX: M47.816 Spondylosis without myelopathy or radiculopathy, lumbar region (principal)
CPT/HCPCS: 64635; 64636; 99152; 99153; J2250

== ENCOUNTER → 2025-01-28 13:06 | Outpatient (CLI) | payer MEDICARE, OTHER, SELFPAY ==
--- NOTE | 2025-01-28 13:09 | DI.MRI.S_ITS ---
PROCEDURE: MR CERVICAL SPINE WO CON INDICATIONS: Radiculopathy TECHNIQUE: Noncontrast sagittal T1 spin echo and T2 fast spin echo, sagittal STIR, foraminal oblique sagittal T2 fast spin echo, and axial gradient echo or T2 fast spin echo through the cervical spine. COMPARISON: None. FINDINGS: Image quality: Excellent. Alignment and Curvature: Straightening of the normal cervical lordosis. Bone Marrow: Marrow demonstrates normal overall signal. Spinal Cord: Visualized spinal cord has normal size and signal. No cerebellar tonsillar herniation. Paraspinous Soft Tissues: No paravertebral masses. Prevertebral soft tissues are normal in thickness. C2-C3: No central canal stenosis. Facet and uncovertebral arthropathy. Moderate left and no right neural foraminal stenosis. C3-C4: Disc desiccation. Facet and uncovertebral arthropathy. No central canal stenosis. Moderate to severe right and moderate left neural foraminal stenosis. C4-C5: Disc desiccation and mild posterior disc osteophyte complex. Facet uncovertebral arthropathy. No central canal stenosis. Moderate bilateral neural foraminal stenosis. C5-C6: Disc desiccation and mild posterior disc osteophyte complex. Facet uncovertebral arthropathy. No central canal stenosis. Severe right and moderate left neural foraminal stenosis. C6-C7: Disc desiccation and mild height loss. Facet and uncovertebral arthropathy. No significant central canal or neural foraminal stenosis. C7-T1: Disc desiccation. Facet uncovertebral arthropathy. No central canal stenosis. Mild bilateral neural foraminal stenosis. IMPRESSION: 1. Multilevel degenerative changes of the cervical spine as described above. 2. No significant central canal stenosis. 3. Severe neural foraminal stenosis on the right at C5-C6. Moderate to severe neural foraminal stenosis on the right at C3-C4. Dictated by: Kaushal Heredia M.D. on 01/30/2025 at 10:18 Approved by: Kaushal Heredia M.D. on 01/30/2025 at 10:25
== END ==
LOC: MRI 13:07
PROVIDERS: Referring Provider Physical Medicine & Rehabilitation; Visit Provider Physical Medicine & Rehabilitation
DX: M47.22 Other spondylosis with radiculopathy, cervical region (principal); M48.02 Spinal stenosis, cervical region
CPT/HCPCS: 72141

== ENCOUNTER 2025-02-16 08:19 | Outpatient (CLI) | payer MEDICARE, OTHER, SELFPAY ==
[2025-02-16] VITALS (10 sets, daily range): BP systolic 117–153; BP diastolic 66–80; PULSE 69–82; RESP 12–20; TEMP 36.1; O2SAT 94–99
[2025-02-16] MEDS: MIDAZOLAM 2 MG/2 ML VIAL IV ×2 (09:53→10:02)
[2025-02-16] MEDS: DEXAMETHASONE 10 MG/ML VIAL 30 MG INJ (09:59)
[2025-02-16] MEDS: BUPIVACAINE 0.25% (PF) VIAL 2 ML INJ (10:00)
--- NOTE | 2025-02-16 10:21 | PM.PROC.IR.1 ---
Date/Time/Diagnoses Date of procedure: 02/16/25 Pre-procedure diagnosis: 1. CERVICAL STENOSIS, 2. CERVICAL HNP WITH UPPER EXTREMITY RADICULAR FEATURES Post-procedure diagnosis: same Procedure Notes Procedure: 1. FLUORSCOPICALLY GUIDED CONTRAST CONTROLLED INTERLAMINAR EPIDURAL STEROID INJECTION - C6/7 TL CHRISTIANO Indications: Vibha is referred for treatment of Cervical HNP with Upper Extremity Paresthesias. Physician: Ameya Freedman Total Fluoroscopy time (seconds): 43 Total sedation minutes: 22 Complications: none Procedure in detail & Post-procedure care: FINDINGS Cervical Stenosis due to disc deterioration and nerve root irritation and nerve root irritation DESCRIPTION OF PROCEDURE Fluoroscopically guided, contrast-controlled C6/7 translaminar epidural steroid injection with conscious sedation. Following review of allergy and review of potential side effects and complications, including, but not necessarily limited to, infection, allergic reaction, local tissue breakdown, temporary as well as permanent nerve injury, stroke, paralysis, and possible , the patient indicated that patient understood and agreed to proceed. An informed consent document was signed by the patient, witnessed by a nurse, and placed in the patient's chart. Additionally, other treatment options including modalities, medications, and physical therapy were reviewed with the patient. After review of previous anaesthesic history and IV conscious sedation the patient was deemed safe to proceed with today?s procedure with IV conscious sedation as ASA class II designation. Safety time-out was performed to confirm patient ID, procedure to be performed and site of procedure. IV sedation was accomplished with a combination of 4mg of Versed administered by the RN after DO order, titrated to patient comfort during the course of the procedure while the patient remained responsive to all verbal commands. In the prone position, following sterile prep and drape of the cervical region, the C6/7 translaminar space was identified fluoroscopically. The skin was anesthetized via a 25-gauge 1.5-inch needle with 1% lidocaine solution. At this point, a 25-gauge, 2.5-inch short bevel spinal needle was atraumatically introduced and advanced under fluoroscopic guidance into epidural space at the C6/7 translaminar space. Depth was confirmed on lateral view. Radiological data, including multiple fluoroscopic views of the cervical spine, reveal a spinal needle at the C6/7 translaminar space. Lateral views then show placement of the needle in the epidural space. Subsequent views show contrast material flowing superiorly and inferiorly in the epidural space. DSA fluoroscopy with live contrast injection, once again, confirmed no vascular or intrathecal uptake. At this point, using loss of resistance technique with saline and air, the epidural space was entered. Following negative aspiration, injection of approximately 1.5 cc of Isovue-200 with live fluoroscopy in the AP view confirmed epidural flow in the epidural space without vascular or intrathecal uptake observed. Subsequently, a test dose of 1 cc of 1% lidocaine solution was injected and patient was observed for two minutes without signs or symptoms of complications, including abdominal pain, shortness of breath, bilateral upper or lower extremity weakness, nausea and vomiting, prior to steroid injection. At this point, 3cc or 30mg of dexamethasone was then injected without incident. The patient tolerated the procedure well without signs or symptoms of complications prior to being transferred to the recovery area for further monitoring, The patient was then transferred to the recovery area where they were observed for an appropriate period of time after the injection. The patient reported a VAS score of 6 prior to the procedure and a post-procedure VAS of 0. POST OP INSTRUCTIONS The patient was provided a Pain Log to continue to record their response to the target-specific procedure prior to follow-up visit with the referring provider. Additionally, specific post-injection care instructions and a contact number to our office were provided if concerns arise regarding possible complications associated with the procedure are suspected.
== END 2025-02-16 10:34 | disposition home or self-care (01) ==
LOC: RAD 08:20
PROVIDERS: Referring Provider Physical Medicine & Rehabilitation; Visit Provider Physical Medicine & Rehabilitation
DX: M48.02 Spinal stenosis, cervical region (principal); M50.123 Cervical disc disorder at C6-C7 level with radiculopathy
CPT/HCPCS: 62321; 99152; J1100; J2250

== ENCOUNTER 2025-05-17 08:16 | Emergency (ER) | payer MEDICARE, OTHER, SELFPAY ==
[2025-05-17 08:52] VITALS: BP 156/78; PULSE 74; RESP 17; TEMP 37.2; O2SAT 99; BMI 27.8
--- NOTE | 2025-05-17 09:20 | ED.NECK ---
HPI - Neck Pain/Injury General Chief Complaint: Neck Pain/Injury Stated Complaint: Neck pain , Time Seen by Provider: 05/17/25 08:37 Mode of arrival: Family Vehicle History of Present Illness HPI Narrative: 69-year-old female history of cervical stenosis with radiculopathy with recent steroid injection on . Patient had MRI on 01/28/2025 showing multilevel degenerative changes of the cervical spine no significant stent central canal stenosis. Severe neural foraminal stenosis right C5-C6. Moderate to severe neural foraminal stenosis right at C3-C4. Patient reports she has a colonoscopy planned for this Thursday and was told to stop her Celebrex before the procedure but since she was in significant pain last night she took her Celebrex along when the 1 tablet of tramadol and gabapentin helped subside some of the pain still having significant pain with range of motion in all directions. Other than what is stated 14 point review of system is negative. Related Data Home Medications ?Medication ?Instructions ?Recorded ?Confirmed [HERBAL SLEEP AID] 2 tabs PO QHS ##0 10/15/12 04/07/25 amlodipine 5 mg tablet (Norvasc) 5 mg PO QDAY ##0 10/15/12 04/07/25 losartan 100 mg tablet (Cozaar) 100 mg PO QDAY ##0 10/15/12 04/07/25 atorvastatin 20 mg tablet 20 mg PO BEDTIME 04/16/22 04/07/25 methocarbamol 500 mg tablet 500 mg PO TID 04/16/22 04/07/25 omeprazole 20 mg capsule,delayed 20 mg PO DAILY 04/16/22 04/07/25 release acetaminophen 325 mg capsule 325 mg PO ONCE PRN 11/05/22 04/07/25 (Tylenol) levothyroxine 75 mcg tablet 75 mcg PO DAILY 03/11/23 04/07/25 (Synthroid) celecoxib 100 mg capsule 100 mg PO BID 05/25/24 04/07/25 fluticasone propionate 50 intranasal 05/25/24 01/25/25 mcg/actuation nasal spray,suspension duloxetine 60 mg capsule,delayed 60 mg PO DAILY To help my anxiety. 01/25/25 04/07/25 release (Cymbalta) ascorbic acid (vitamin C) 1,000 mg 1,000 mg PO DAILY 04/07/25 04/07/25 capsule adagoko-wuoctfiadivcp-pjvfhwlb 250 1 tab PO Q4-6H PRN 04/07/25 04/07/25 mg-250 mg-65 mg tablet (Excedrin Extra Strength) cholecalciferol (vitamin D3) 125 125 mcg PO DAILY 04/07/25 04/07/25 mcg (5,000 unit) capsule clonazepam 0.5 mg tablet 0.25 mg PO BEDTIME 04/07/25 04/07/25 famotidine 10 mg chewable tablet mg PO 04/07/25 04/07/25 magnesium hydroxide 400 mg/5 mL 5 ml PO DAILY PRN 04/07/25 04/07/25 oral suspension (Milk of Magnesia) zinc sulfate 50 mg zinc (220 mg) 50 mg PO DAILY 04/07/25 04/07/25 capsule Previous Rx's ?Medication ?Instructions ?Recorded gabapentin 300 mg capsule 300 mg PO .COMPLEX #90 caps 02/01/24 lidocaine 5 % topical patch 1 patch topical DAILY #30 ea 01/25/25 tramadol 50 mg tablet 50 mg PO BID PRN pain #30 tabs 01/25/25 sodium,potassium,mag sulfates 17.5 See Rx Instructions PO .COMPLEX 04/07/25 gram-3.13 gram-1.6 gram oral soln #354 mL (Suprep Bowel Prep Kit) hydrocodone 5 mg-acetaminophen 325 1 tab PO Q6H PRN pain #20 tabs 05/17/25 mg tablet Allergies Allergy/AdvReac Type Severity Reaction Status Date / Time Penicillins Allergy Mild Rash, Verified 05/17/25 08:52 Diarrhea latex AdvReac ITCHING Verified 05/17/25 08:52 Review of Systems Review of Systems ROS Unobtainable: All systems reviewed & are unremarkable except as noted in HPI and below Patient History Medical History Cervical radiculopathy Cyst of lumbar facet joint Facet arthropathy, lumbar Lumbar foraminal stenosis Lumbar radiculopathy Social History Smoking Status: Never smoker Smoking Status: Never smoker Alcohol type: wine Exam Narrative Exam Narrative: GENERAL: [69] year old patient appears stated age. Well-developed patient, in mild distress. HEAD: Atraumatic. Normocephalic. EYES: Pupils equal round and reactive. Extraocular motions intact. No scleral icterus. No injection or drainage. ENT: Nose without bleeding, purulent drainage. Throat without erythema, tonsillar hypertrophy or exudate. Airway patent. NECK: Trachea midline. Non tender decreased range of motion in all directions flexion extension side bending rotation worse turning head to the left side. CARDIOVASCULAR: Regular rate and rhythm without murmurs, gallops, or rubs. RESPIRATORY: Clear to auscultation. Breath sounds equal bilaterally. No wheezes, rales, or rhonchi. GASTROINTESTINAL: Abdomen soft, non-tender, nondistended. EXTREMITIES: No edema or joint tenderness. BACK: Nontender without deformity or crepitance. No flank tenderness. NEURO: AOx3. SKIN: No rash or erythema of visible areas Initial Vital Signs Initial Vital Signs: Vital Signs Temperature 99.0 F 05/17/25 08:52 Pulse Rate 74 05/17/25 08:52 Respiratory Rate 17 05/17/25 08:52 Blood Pressure 156/78 H 05/17/25 08:52 Pulse Oximetry 99 05/17/25 08:52 Oxygen Delivery Method Room Air 05/17/25 08:52 Course Orders Ordered: ED Orders 05/17/25 09:31 CT cervical spine wo con Stat Discontinued Medications Hydrocodone Bitart/Acetaminophen (Hydrocodone/Acet 5/325 Tablet) 1 tab PO NOW ONE Stop: 05/17/25 09:32 Last Admin: 05/17/25 10:03 Dose: 1 tab Documented By: SINGH Vital Signs Vital signs: Vital Signs - 8 hr 05/17/25 08:52 Temperature 99.0 F Pulse Rate 74 Respiratory Rate 17 Blood Pressure 156/78 H Pulse Oximetry 99 Oxygen Delivery Method Room Air MDM - Neck Pain/Injury Imaging Data CT - cervical spine: Radiologist's Impression: [address] [address] [address] Scan Report Signed Patient: Vibha Jordan MR#: [id number] : 1955 Acct:[id number] Age/Sex: 69 / F Date of Service: 05/17/25 Loc: ED Accession Number: [id number] Procedure: CT cervical spine wo con Ordering Provider: Tj Diallo D.O. PROCEDURE: CT CERVICAL SPINE WO CON INDICATIONS: neck pain TECHNIQUE: Noncontrast 3 mm thick sections acquired from the skull base to the T4 level. Sagittal and coronal reformats were then constructed. For radiation dose reduction, the following was used: automated exposure control, adjustment of mA and/or kV according to patient size. COMPARISON: None. FINDINGS: Image quality: Diagnostic Bones: No fractures or dislocations. Visualized superior ribs are intact. Multilevel degenerative changes. Soft tissues: Prevertebral soft tissues are normal in thickness. No paravertebral hematomas. No apical pneumothoraces. IMPRESSION: No displaced fracture or traumatic subluxation. MDM Narrative Medical decision making narrative: All lab work vital signs nurse triage note medication list previous ER visits in all imaging studies reviewed. CT cervical spine showed no displaced fracture or traumatic subluxation. Patient given [place] here. We will have patient follow up with Dr. Freedman again and to call office for point. Differential diagnosis fracture, strain, sprain, oa, stenosis. Discharge Plan Departure Patient Disposition: Home Clinical Impression: Neck pain Instructions: DI for Neck Pain Activity Restrictions/Additional Instructions: Return with new or worsening symptoms. Take your medicines directed. Call Dr. Freedman office for appointment Prescriptions: New hydrocodone-acetaminophen 5-325 mg tablet 1 tab PO Q6H PRN (Reason: pain) Qty: 20 0RF No Action losartan [Cozaar] 100 MG tablet 100 mg PO QDAY Qty: 0 amlodipine [Norvasc] 5 MG tablet 5 mg PO QDAY Qty: 0 [HERBAL SLEEP AID] 2 tabs PO QHS Qty: 0 sodium,potassium,mag sulfates [Suprep Bowel Prep Kit] 17.5-3.13-1.6 gram recon soln See Rx Instructions PO .COMPLEX Qty: 354 0RF Rx Instructions: As directed by provider clonazepam 0.5 mg tablet 0.25 mg PO BEDTIME Rx Instructions: administer 30 minutes before bedtime famotidine 10 mg tablet,chewable PO magnesium hydroxide [Milk of Magnesia] 400 mg/5 mL suspension 5 ml PO DAILY PRN cholecalciferol (vitamin D3) 125 mcg (5,000 unit) capsule 125 mcg PO DAILY wwlchgz-cplhwlvlpfbkt-dieknxmv [Excedrin Extra Strength] 250-250-65 mg tablet 1 tab PO Q4-6H PRN zinc sulfate 50 mg zinc (220 mg) capsule 50 mg PO DAILY ascorbic acid (vitamin C) 1,000 mg capsule 1,000 mg PO DAILY methocarbamol 500 mg tablet 500 mg PO TID atorvastatin 20 mg tablet 20 mg PO BEDTIME omeprazole 20 mg capsule,delayed release(DR/EC) 20 mg PO DAILY acetaminophen [Tylenol] 325 mg capsule 325 mg PO ONCE PRN levothyroxine [Synthroid] 75 mcg tablet 75 mcg PO DAILY gabapentin 300 mg capsule 300 mg PO .COMPLEX Qty: 90 2RF Rx Instructions: 1-2 PO Tid to begin at HS and titrate to pain relief celecoxib 100 mg capsule 100 mg PO BID fluticasone propionate 50 mcg/actuation spray,suspension intranasal duloxetine [Cymbalta] 60 mg capsule,delayed release(DR/EC) 60 mg PO DAILY Patient Comments: Cymbalta not only has helped my anxiety, but it has helped with my lower back pain as well. It also leaves me feeling like I have more energy and far less stress. tramadol 50 mg tablet 50 mg PO BID PRN (Reason: pain) Qty: 30 3RF lidocaine 5 % adhesive patch,medicated 1 patch topical DAILY Qty: 30 2RF Rx Instructions: leave on most painful area for up to 12 hrs Referrals: Jamil Reveles MD [Primary Care Provider, Family Practice] Stand Alone Forms: Patient Portal/API
--- NOTE | 2025-05-17 09:31 | DI.CT.S_ITS ---
PROCEDURE: CT CERVICAL SPINE WO CON INDICATIONS: neck pain TECHNIQUE: Noncontrast 3 mm thick sections acquired from the skull base to the T4 level. Sagittal and coronal reformats were then constructed. For radiation dose reduction, the following was used: automated exposure control, adjustment of mA and/or kV according to patient size. COMPARISON: None. FINDINGS: Image quality: Diagnostic Bones: No fractures or dislocations. Visualized superior ribs are intact. Multilevel degenerative changes. Soft tissues: Prevertebral soft tissues are normal in thickness. No paravertebral hematomas. No apical pneumothoraces. IMPRESSION: No displaced fracture or traumatic subluxation. Approved by: Archana Haro M.D.,Ph.D. on 05/17/2025 at 10:11
== END 2025-05-17 11:03 | disposition home or self-care (01) ==
PROVIDERS: Emergency Provider Family Medicine; PCP Family Medicine
DX: M54.2 Cervicalgia (principal)
CPT/HCPCS: 72125; 99283; 99284

== ENCOUNTER 2025-06-20 07:52 | Day surgery (SDC) | payer MEDICARE, OTHER, SELFPAY ==
--- NOTE | 2025-06-20 | PATH_ITS ---
[facility] Accession Number: [id number] No. of containers..03 Tissue . 01 Material submitted: . PART A: duodenum - DUODENUM PART B: stomach - ANTRUM PART C: esophagus - ESOPHAGUS, DISTAL . 01 Diagnosis: Part A: DUODENUM: Duodenal mucosa with no diagnostic alterations. No active inflammation and no evidence of celiac disease. . Part B: ANTRUM: Gastric mucosa with mild chronic inflammation. No Helicobacter organisms identified. No intestinal metaplasia, dysplasia, or malignancy identified. . Part C: ESOPHAGUS, DISTAL: Squamous mucosa with no diagnostic alterations. Eosinophils are not increased. [facility] 06/29/[id number] Local . 01 Electronically signed: . Shreyas Null MD, Pathologist NPI- [id number] . 01 Gross description: . A. Received in formalin with two patient identifiers, and duodenum are three, 0.1-0.2 cm, burton tissue fragments, entirely submitted in A1. . B. Received in formalin with two patient identifiers, and antrum are three, 0.1-0.3 cm, burton tissue fragments, entirely submitted in B1. . C. Received in formalin with two patient identifiers, and C. Distal esophagus are two, 0.1-0.2 cm, burton tissue fragments, entirely submitted in C1. ([id number]) /MRV 06/29/[id number] Local . 01 Microscopic: . Part B: ANTRUM: An immunohistochemical stain was performed to evaluate for Helicobacter organisms and is negative. The control stains appropriately. * This test was developed and the performance characteristics were validated by [facility]. It has not been cleared or approved by the Food and Drug Administration. . 01 Pathologist provided ICD-10: K29.50 . 01 CPT . 296497, 519143, 492891, B04769 Specimen Comment: A courtesy copy of this report has been sent to [phone] Performed at: [address] [id number] MD Shreyas Null MD Phone: [phone]
[2025-06-20 08:25] VITALS: BP 149/96; PULSE 76; RESP 16; TEMP 36.9; O2SAT 96
--- NOTE | 2025-06-20 08:42 | PM.HP.IH.1 ---
History of Present Illness History of Present Illness Date Patient Seen: 06/20/25 Time Patient Seen: 08:42 Chief complaint: Esophagogastroduodenoscopy/Colonoscopy Narrative: Vibha is a 69-year-old woman presented back March for change in bowel function. See the office note for details. [facility] Medical History Cervical radiculopathy Cyst of lumbar facet joint Facet arthropathy, lumbar Lumbar foraminal stenosis Lumbar radiculopathy Social History Smoking Status: Never smoker alcohol intake: current Meds Home Medications and Allergies Home Medications ?Medication ?Instructions ?Recorded ?Confirmed ?Type [HERBAL SLEEP AID] 2 tabs PO QHS ##0 10/15/12 04/07/25 History amlodipine 5 mg tablet (Norvasc) 5 mg PO QDAY ##0 10/15/12 06/20/25 History losartan 100 mg tablet (Cozaar) 100 mg PO QDAY ##0 10/15/12 06/20/25 History atorvastatin 20 mg tablet 20 mg PO BEDTIME 04/16/22 04/07/25 History methocarbamol 500 mg tablet 500 mg PO TID 04/16/22 06/20/25 History omeprazole 20 mg capsule,delayed 20 mg PO DAILY 04/16/22 06/20/25 History release acetaminophen 325 mg capsule 325 mg PO ONCE PRN 11/05/22 04/07/25 History (Tylenol) levothyroxine 75 mcg tablet 75 mcg PO DAILY 03/11/23 06/20/25 History (Synthroid) gabapentin 300 mg capsule 300 mg PO .COMPLEX #90 caps 02/01/24 06/20/25 Rx celecoxib 100 mg capsule 100 mg PO BID 05/25/24 06/20/25 History fluticasone propionate 50 intranasal 05/25/24 01/25/25 History mcg/actuation nasal spray,suspension duloxetine 60 mg capsule,delayed 60 mg PO DAILY To help my anxiety. 01/25/25 06/20/25 History release (Cymbalta) tramadol 50 mg tablet 50 mg PO BID PRN pain #30 tabs 01/25/25 06/20/25 Rx ascorbic acid (vitamin C) 1,000 mg 1,000 mg PO DAILY 04/07/25 04/07/25 History capsule osnaqez-nlvckeuqhowsu-[id number] 250 1 tab PO Q4-6H PRN headache 04/07/25 06/20/25 History mg-250 mg-65 mg tablet (Excedrin Extra Strength) cholecalciferol (vitamin D3) 125 125 mcg PO DAILY 04/07/25 04/07/25 History mcg (5,000 unit) capsule clonazepam 0.5 mg tablet 0.25 mg PO BEDTIME 04/07/25 06/20/25 History famotidine 10 mg chewable tablet 1 mg PO 04/07/25 04/07/25 History magnesium hydroxide 400 mg/5 mL 5 ml PO DAILY PRN 04/07/25 04/07/25 History oral suspension (Milk of Magnesia) zinc sulfate 50 mg zinc (220 mg) 50 mg PO DAILY 04/07/25 04/07/25 History capsule hydrocodone 5 mg-acetaminophen 325 1 tab PO Q6H PRN pain #20 tabs 05/17/25 Rx mg tablet lidocaine 5 % topical patch 1 patch topical DAILY #30 ea 06/01/25 Rx Allergies Allergy/AdvReac Type Severity Reaction Status Date / Time Penicillins Allergy Mild Rash, Verified 06/20/25 08:16 Diarrhea latex AdvReac ITCHING Verified 06/20/25 08:16 Exam Vital Signs (past 8 hours): - 06/20/25 08:25 Temperature 98.4 F Pulse Rate 76 Respiratory Rate 16 Blood Pressure 149/96 H Pulse Oximetry 96 Oxygen Delivery Method Room Air Oxygen Delivery Method Room Air Const General: healthy appearing Assessment & Plan Assessment and plan (1) Change in bowel function: Status: Acute Plan EGD and colonoscopy Time-Based Coding :: [TOTAL MINUTES] spent with patient and on the chart (including review of chart, obtaining history, exam, reviewing outside data, placing orders, documenting exam and treatment plan, and counseling patient) on [DATE]. [employer] Form [employer]per Document charge(s): No
[2025-06-20] MEDS: LACTATED RINGERS 1,000 ML 42 ML IV (08:45)
[2025-06-20 09:45] VITALS: BP 124/63; PULSE 76; RESP 14; TEMP 36.2; O2SAT 96
--- NOTE | 2025-06-20 09:49 | PM.OP.EC ---
Operative Date/Time/Diagnoses Date of procedure: 06/20/25 Time of procedure: 09:49 Pre-op diagnosis: Change in bowel habits Post-op diagnosis: same Procedure & Clinicians Study performed: EGD and colonoscopy Same procedure(s) as scheduled: Yes Surgeon: Chandra Dolan Anesthesia Type: MAC +/- Procedure Notes Procedure in detail: Surgeon: Chandra Dolan MD Anesthesia: Ayaka Flakito DENTAL BILLING SPECIALIST Procedure in detail: A timeout was performed. A bite blocked was placed and monitors were attached to the patient. The patient was positioned in the left lateral decubitus position. Sedation was administered. Once the patient was sedated the endoscope was inserted through the bite block and passed through the esophagus and stomach and into the duodenum. No gross abnormalities were seen. Random biopsies were taken from the duodenum with cold forceps. We then withdrew the scope into the stomach. Random biopsies were taken from the antrum with cold forceps. The endoscope was retroflexed and a small hiatal hernia was noted. The hiatus was at approximately 37 cm and the GE junction was at approximately 35 cm. The endoscope was straightned and withdrawn into the esophagus. No gross abnormalities were seen in the esophagus. Random biopsies were taken from the distal esophagus with the cold forceps. EGD findings: Small hiatal hernia, hiatus at approximately 37 cm and GE junction approximately 35 cm Next we repositioned the patient for a colonoscopy. A digital rectal exam was performed and above normal sphincter tone was noted. The colonoscope was inserted and advanced to the cecum. The appendiceal orifice was identified and photographed. The scope was slowly withdrawn over greater than 6 minutes. No polyps or other abnormalities were found. The scope was retroflexed in the rectum and no abnormalities seen. Colonoscopy findings: Normal colon Scope withdrawal time: 7 minutes Sedation minutes: 21 minutes Estimated Blood Loss: 5 Complications: none Post-procedure Disposition: PACU
[2025-06-20 09:50] VITALS: BP 124/63; PULSE 71; RESP 14; O2SAT 97
[2025-06-20 09:55] VITALS: BP 120/67; PULSE 67; RESP 16; O2SAT 99
[2025-06-20 09:56] VITALS: BP 145/63; PULSE 61; RESP 14; O2SAT 98
== END 2025-06-20 10:10 | disposition home or self-care (01) ==
PROVIDERS: PCP Family Medicine; Referring Provider Surgery; Visit Provider Surgery
PROC: 0DJ08ZZ Inspection of Upper Intestinal Tract, Via Natural or Artificial Opening Endoscopic (ICD-10-PCS; CPT 43239; principal; 2025-06-20 09:00)
PROC: 0DJD8ZZ Inspection of Lower Intestinal Tract, Via Natural or Artificial Opening Endoscopic (ICD-10-PCS; CPT 45378; 2025-06-20 09:00)
DX: K29.50 Unspecified chronic gastritis without bleeding (principal); R19.4 Change in bowel habit; K44.9 Diaphragmatic hernia without obstruction or gangrene; I10 Essential (primary) hypertension; E78.5 Hyperlipidemia, unspecified; E03.9 Hypothyroidism, unspecified; K21.9 Gastro-esophageal reflux disease without esophagitis; G47.30 Sleep apnea, unspecified; I25.2 Old myocardial infarction
CPT/HCPCS: 43239; 45378; J2704; J7120